=== PATIENT | female | born 1985 | race Caucasian/White ===

== ENCOUNTER 2018-09-07 07:48 | Emergency (ER) | payer OTHER, MEDICAID ==
[2018-09-07] MEDS: IBUPROFEN 600 MG TAB PO (08:35)
== END 2018-09-07 08:55 | disposition home or self-care (01) ==
LOC: FTE 07:48
DX: M79.601 Pain in right arm (principal); M79.602 Pain in left arm; R20.2 Paresthesia of skin
CPT/HCPCS: 81025; 99283

== ENCOUNTER 2018-11-10 17:13 | Emergency (ER) | payer OTHER ==
[2018-11-10] MEDS: traMADol 50 MG TAB PO (18:45)
[2018-11-10] MEDS: KETOROLAC 30 MG INJ IM (18:46)
== END 2018-11-10 19:04 | disposition home or self-care (01) ==
LOC: FTE 17:13
DX: B02.9 Zoster without complications (principal)
CPT/HCPCS: 81025; 96372; 99284-25